=== PATIENT | female | born 1965 | race Caucasian/White ===

== ENCOUNTER 2017-06-26 07:40 | Observation (INO) | payer OTHER ==
[~2017-06-26] VITALS: Ht 160 cm; Wt 61.5 kg
[~2017-06-26 07:40] MED LIST: ACYC400T PO; SYNT75TA PO
[2017-06-26 07:43] VITALS: BP 109/56; PULSE 56; RESP 15; TEMP 98.2; O2SAT 100
[2017-06-26] MEDS ORDERED: LEVO.075 PO (08:01)
[2017-06-26] MEDS ORDERED: ACYC400T PO (08:01)
[2017-06-26 08:25] LABS: AUTOMATED NEUTROPHIL # 3.9 TH/MM3 (1.8-7.7); BASOPHIL # 0.1 TH/MM3 (0-0.2); BASOPHIL % 1.3 % (0.0-2.0); EOSINOPHIL # 0.2 TH/MM3 (0-0.4); EOSINOPHIL % 2.4 % (0.0-4.0); HEMATOCRIT 29.2 % (35.0-46.0); HEMO FLAGS DIFF FINAL; LYMPH % 34.5 % (9.0-44.0); LYMPHOCYTE # 2.6 TH/MM3 (1.0-4.8); MEAN CORPUSCULAR HEMOGLOBIN 21.9 PG (27.0-34.0); MEAN CORPUSCULAR HGB CONC 31.8 % (32.0-36.0); MONO % 9.5 % (0.0-8.0); NEUT % 52.3 % (16.0-70.0); PLATELET COUNT 353 TH/MM3 (150-450); RED BLOOD COUNT 4.23 MIL/MM3 (4.00-5.30); RED CELL DISTRIBUTION WIDTH 16.6 % (11.6-17.2); WHITE BLOOD COUNT 7.4 TH/MM3 (4.0-11.0)
[2017-06-26 08:42] LABS: ANION GAP 6 MEQ/L (5-15); AST (GOT) 16 U/L (15-37); BICARBONATE 27.6 MEQ/L (21.0-32.0); BLOOD UREA NITROGEN 22 MG/DL (7-18); CHLORIDE 105 MEQ/L (98-107); GLOMERULAR FILTRATION RATE 87 ML/MIN (>89); POTASSIUM 3.9 MEQ/L (3.5-5.1); SODIUM (NA) 139 MEQ/L (136-145)
[2017-06-26 08:44] LABS: ALT (GPT) 27 U/L (10-53)
[2017-06-26 08:46] LABS: ALKALINE PHOSPHATASE 70 U/L (45-117); TOTAL BILIRUBIN ADULT 0.2 MG/DL (0.2-1.0)
[2017-06-26] MEDS ORDERED: PANTOPRAZOLE INJ 80 MG in SODIUM CHLORIDE 0.9% INJ 35 ML IV ONE (09:15)
[2017-06-26] MEDS ORDERED: PANTOPRAZOLE INJ 80 MG in SODIUM CHLORIDE 0.9% INJ 100 ML IV SCH (09:15)
[2017-06-26 09:40] LABS: APTT (PATIENT) 26.1 SEC (24.3-30.1); INTERNATIONAL NORMALIZED RATIO 1.1 RATIO; PROTHROMBIN TIME - PATIENT 12.1 SEC (9.8-11.6)
[2017-06-26 10:16] LABS: TRANSFERRIN IRON PROFILE 387 MG/DL (200-360)
[2017-06-26 10:18] LABS: FERRITIN 7 NG/ML (8-252)
--- NOTE | 2017-06-26 10:23 | PD ---
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 Ham also with a history of heavy menstrual cycles who presents to the emergency department with fatigue. She says over the past week she's been increasingly tired, lightheaded and dizzy when she stands up with palpitations and exertional difficulty. She says she feels foggy all of the time and she is having difficulty working. She's had to take several days off of work and she feels unsafe. She has been diagnosed with anemia and she's been following with a technology officer who has been trying to schedule her for an endometrial ablation. She had an oophorectomy in the setting of a hemorrhagic cyst but when they went to her endometrial ablation they found that her IUD was embedded in her uterus and they were unable to perform it. She does have heavy menstrual cycles that last for 6-7 days and sometimes she has a hard time knowing when her menstrual cycle is occurring or she's having breakthrough bleeding. She hasn't noticed any dark stools or black stools. PFSH Past Medical History Anemia: Yes Diminished Hearing: No Thyroid Disease: Yes Tetanus Vaccination: Unknown Influenza Vaccination: Yes ?: Not LMP: NOW : 3 Para: 1 : 2 Past Surgical History Abdominal Surgery: Yes (GASTRIC BYPASS 06/2016) Gynecologic Surgery: Yes ( X 1 , OOPHORECTOMY ) Other Surgery: Yes Social History Alcohol Use: Yes ([facility]) Tobacco Use: No (QUIT 26 YEARS AGO ) Substance Use: No Allergies-Medications (Allergen,Severity, Reaction): Coded Allergies: Bees (Verified Allergy, Intermediate, Swelling, 06/26/17) Swelling all over Fire Ant (Verified Allergy, Intermediate, Swelling, 06/26/17) Swelling all over Reported Meds & Prescriptions Reported Meds & Active Scripts Active Reported Synthroid (Levothyroxine Sodium) 75 Mcg Tab 75 Mcg PO DAILY Acyclovir 400 Mg Tab 400 Mg PO DAILY Review of Systems Except as stated in HPI: all other systems reviewed are Neg Physical Exam Narrative GENERAL:Well appearing, no acute distress SKIN: Focused skin assessment warm and dry. HEAD: Atraumatic. Normocephalic. EYES: Pupils equal and round. No injection or drainage. ENT: Moist mucous membranes NECK: Trachea midline. CARDIOVASCULAR: Regular rate and rhythm. No murmur appreciated. RESPIRATORY: Clear to auscultation. Breath sounds equal bilaterally. GASTROINTESTINAL: Abdomen soft, firm heterogenous uterus, mildly tender to palpation in the left lower quadrant with no rebound or guarding. MUSCULOSKELETAL: No obvious deformities. NEUROLOGICAL: Awake and alert. No obvious cranial nerve deficits. Moving all extremities. PSYCHIATRIC: Appropriate mood and affect; insight and judgment normal. Data Data Last Documented VS Vital Signs Date Time Temp Pulse Resp B/P Pulse Ox O2 Delivery O2 Flow Rate FiO2 06/26/17 07:43 98.2 56 15 109/56 100 Orders Complete Blood Count With Diff (06/26/17 08:07) Comprehensive Metabolic Panel (06/26/17 08:07) Type And Screen (06/26/17 08:40) Prothrombin Time / Inr (Pt) (06/26/17 08:40) Act Partial Throm Time (Ptt) (06/26/17 08:40) Thyroid Stimulating Hormone (06/26/17 08:40) Pantoprazole Inj (Protonix Inj) (06/26/17 09:15) Pantoprazole Inj (Protonix Inj) (06/26/17 09:15) Ferritin (06/26/17 09:06) Iron/Tibc Profile (06/26/17 09:06) Admit Order (Ed Use Only) (06/26/17 09:25) Labs Laboratory Tests Test 06/26/17 06/26/17 08:10 08:16 White Blood Count 7.4 TH/MM3 Red Blood Count 4.23 MIL/MM3 Hemoglobin 9.3 GM/DL Hematocrit 29.2 % Mean Corpuscular Volume 69.0 FL Mean Corpuscular Hemoglobin 21.9 PG Mean Corpuscular Hemoglobin 31.8 % Concent Red Cell Distribution Width 16.6 % Platelet Count 353 TH/MM3 Mean Platelet Volume 7.7 FL Neutrophils (%) (Auto) 52.3 % Lymphocytes (%) (Auto) 34.5 % Monocytes (%) (Auto) 9.5 % Eosinophils (%) (Auto) 2.4 % Basophils (%) (Auto) 1.3 % Neutrophils # (Auto) 3.9 TH/MM3 Lymphocytes # (Auto) 2.6 TH/MM3 Monocytes # (Auto) 0.7 TH/MM3 Eosinophils # (Auto) 0.2 TH/MM3 Basophils # (Auto) 0.1 TH/MM3 CBC Comment DIFF FINAL Differential Comment Sodium Level 139 MEQ/L Potassium Level 3.9 MEQ/L Chloride Level 105 MEQ/L Carbon Dioxide Level 27.6 MEQ/L Anion Gap 6 MEQ/L Blood Urea Nitrogen 22 MG/DL Creatinine 0.71 MG/DL Estimat Glomerular Filtration 87 ML/MIN Rate Random Glucose 87 MG/DL Calcium Level 8.6 MG/DL Iron Level 18 MCG/DL Total Iron Binding Capacity 542 MCG/DL Percent Iron Saturation 3.3 % Ferritin 7 NG/ML Total Bilirubin 0.2 MG/DL Aspartate Amino Transf 16 U/L (AST/SGOT) Alanine Aminotransferase 27 U/L (ALT/SGPT) Alkaline Phosphatase 70 U/L Total Protein 7.2 GM/DL Albumin 3.9 GM/DL Thyroid Stimulating Hormone 2.170 uIU/ML 3rd Gen Prothrombin Time 12.1 SEC Prothromb Time International 1.1 RATIO Ratio Activated Partial 26.1 SEC Thromboplast Time Blood Type A POSITIVE Antibody Screen NEGATIVE MDM Medical Decision Making Medical Screen Exam Complete: Yes Emergency Medical Condition: Yes Interpretation(s) Afebrile, no tachycardia, normotensive Microcytic anemia Electrolytes are reassuring Differential Diagnosis GI bleed, menorrhagia, anemia, hypothyroidism Narrative Course This is a 51-year-old female who presents to the emergency department with increasing fatigue weakness palpitations and dizziness in the setting of known anemia. She was Hemoccult positive on my exam. She is placed on a monitor and an IV was established. Labs are obtained which demonstrated a hemoglobin of 9. I spoke to Dr. Mcintosh as the patient is a patient of Dr. Willett. He said he agrees she needs an endoscopy colonoscopy. I spoke to Dr. Allen and we agreed the patient can be placed in observation and seen by GI given her increasing and worsening symptoms. HemaPrompt Point of Care Internal Pos. & Neg. Controls: Passed Fecal Specimen Occult Blood: Positive Diagnosis Primary Impression: GI bleed Qualified Code: K92.2 - Gastrointestinal hemorrhage, unspecified gastrointestinal hemorrhage type Admitting Information Admitting Physician Requests: Observation Patient Instructions: General Instructions Departure Forms: Tests/Procedures Matilda Nation MD Jun 26, 2017 10:23
[2017-06-26] MEDS ORDERED: TEMAZEPAM 15 MG CAP PO PRN (11:30)
[2017-06-26] MEDS ORDERED: MAGNESIUM HYDROXIDE SUSP 30 ML CUP PO PRN (11:30)
[2017-06-26] MEDS ORDERED: ACETAMINOPHEN 325 MG TAB PO PRN (11:30)
[2017-06-26] MEDS ORDERED: ONDANSETRON HCL 4 MG/2 ML VIAL IVP PRN (11:30)
[2017-06-26] MEDS ORDERED: SODIUM CHLORIDE 0.9% FLUSH 10 ML FLUSH IV FLUSH PRN (11:30)
[2017-06-26] MEDS ORDERED: NALOXONE HCL 0.4 MG/ML AMP IV PRN (11:30)
--- NOTE | 2017-06-26 11:49 | RADRPT ---
EXAM DATE/TIME: 06/26/2017 11:42 [facility] COMPARISON: No previous studies available for comparison. INDICATIONS : Cough MEDICAL HISTORY : GI bleed SURGICAL HISTORY : None. ENCOUNTER: Initial ACUITY: 1 day PAIN SCORE: 0/10 LOCATION: chest FINDINGS: Portable AP view of the chest demonstrates a normal-sized cardiac silhouette. No effusion, consolidat ion, or pneumothorax is visualized. The bones and soft tissues demonstrate no acute abnormality. CONCLUSION: No acute cardiopulmonary abnormality is identified. Madhu Croft MD on June 26, 2017 at 11:47 Board Certified Radiologist. This report was verified electronically.
--- NOTE | 2017-06-26 13:20 | PD.CONS ---
HPI History of Present Illness This is a 51 year old female who presented to the ED with c/o fatigue. Patient reports ongoing fatigue over past 4 months, worsening over the past year. Reports that over the past week she has become increasingly tired, lightheaded, and dizzy when she stands up. Patient states she was first noted to be anemic 4 months ago and was started on iron supplements. PMH significant for Cole en y gastric bypass (by Dr. Martin) in Jul 2016 and heavy menstrual cycles. Gynecology has been following patient and had scheduled her for an endometrial ablation, which could not be completed because her IUD was found to be embedded in her uterus. Patient is s/p oophorectomy for hemorrhagic cyst about 3 months ago. Patient is currently on her menstrual cycle, which she states is currently not heavy. Reports intermittent upper abdominal pain. No nausea or vomiting. Has not noted any dark stool or blood in stool. Reports family history of colon cancer in father. Her last colonoscopy was done by Dr. Woodward 3 years ago at [place], which showed polyps, benign, per patient. (Adriana Alcala) PFSH Past Medical History Anemia Thyroid disease Menorrhagia Past Surgical History Gastric bypass, Jul 2016 C section, x 1 Oophorectomy (Adriana Alcala) Coded Allergies: Bees (Verified Allergy, Intermediate, Swelling, 06/26/17) Swelling all over Fire Ant (Verified Allergy, Intermediate, Swelling, 06/26/17) Swelling all over Medications Current Medications Medications (Trade) Dose Ordered Sig/Alfonso Route PRN Reason Start Time Stop Time Status Last Admin Dose Admin Pantoprazole Sodium/Sodium Chloride (Protonix Inj/NS Inj) 100 ml @ 10 mls/hr Q10H IV 06/26/17 09:15 06/26/17 09:49 Sodium Chloride (NS Flush) 2 ml UNSCH PRN IV FLUSH FLUSH AFTER USING IV ACCESS 06/26/17 11:30 Sodium Chloride (NS Flush) 2 ml BID IV FLUSH 06/26/17 21:00 Acetaminophen (Tylenol) 650 mg Q4H PRN PO TEMP > 100.4 06/26/17 11:30 Ondansetron HCl (Zofran Inj) 4 mg Q6H PRN IVP NAUSEA OR VOMITING 06/26/17 11:30 Temazepam (Restoril) 15 mg HS PRN PO INSOMNIA 06/26/17 11:30 Naloxone HCl (Narcan Inj) 0.4 mg UNSCH PRN IV SEE LABEL COMMENTS 06/26/17 11:30 Magnesium Hydroxide (Milk Of Uma Lazcano) 30 ml Q12H PRN PO MILD - MODERATE CONSTIPATION 06/26/17 11:30 Acyclovir (Zovirax) 400 mg DAILY PO 06/27/17 09:00 Levothyroxine Sodium (Synthroid) 75 mcg DAILY@06 PO 06/27/17 06:00 Family History Father-Colon Cancer Social History ETOH, occasional Tobacco, none currently, quit 26 years ago Illicit Drugs, denies (Adriana Alcala) Review of Systems Constitutional: COMPLAINS OF: Dizziness, DENIES: Diaphoretic episodes, Fatigue , Fever, Weight gain, Weight loss, Chills, Change in appetite, Night Sweats Endocrine: DENIES: Polydipsia, Polyuria Eyes: DENIES: Blurred vision, Photosensitivity, Double Vision Ears, nose, mouth, throat: DENIES: Hearing loss, Vertigo, Oral lesions, Throat pain, Hoarseness Respiratory: DENIES: Cough, Wheezing, Hemoptysis, Sputum production, Shortness of breath Cardiovascular: COMPLAINS OF: Palpitations, DENIES: Chest pain, Syncope, Lower Extremity Edema, Orthopnea, Claudication Gastrointestinal: COMPLAINS OF: Abdominal pain, DENIES: Black stools, Bloody stools, Constipation, Diarrhea, Nausea, Vomiting, Difficulty Swallowing, Anorexia, Odynophagia, Swelling of Abdomen, Heartburn, Hematemesis Genitourinary: DENIES: Urinary frequency, Urinary incontinence, Urgency, Hematuria, Dysuria, Nocturia Musculoskeletal: DENIES: Joint pain, Muscle aches, Stiffness, Joint Swelling, Back pain, Neck pain Integumentary: DENIES: Abnormal pigmentation, Nail changes, Pruritus, Rash, Jaundice Hematologic/lymphatic: DENIES: Bruising, Lymphadenopathy Immunologic/allergic: DENIES: Eczema, Urticaria Neurologic: DENIES: Abnormal gait, Headache, Localized weakness, Paresthesias Psychiatric: DENIES: Anxiety, Confusion, Mood changes, Depression, Agitation, Suicidal Ideation (Adriana Alcala) GI Exam Vitals I&O Vital Signs Date Time Temp Pulse Resp B/P Pulse Ox O2 Delivery O2 Flow Rate FiO2 06/26/17 07:43 98.2 56 15 109/56 100 Imaging Last Impressions Chest X-Ray 06/26/17 1129 Signed Impressions: Service Date/Time: Monday, June 26, 2017 11:42 - CONCLUSION: No acute cardiopulmonary abnormality is identified. Madhu Croft MD Laboratory Test 06/26/17 06/26/17 08:10 08:16 White Blood Count 7.4 TH/MM3 Red Blood Count 4.23 MIL/MM3 Hemoglobin 9.3 GM/DL Hematocrit 29.2 % Mean Corpuscular Volume 69.0 FL Mean Corpuscular Hemoglobin 21.9 PG Mean Corpuscular Hemoglobin 31.8 % Concent Red Cell Distribution Width 16.6 % Platelet Count 353 TH/MM3 Mean Platelet Volume 7.7 FL Neutrophils (%) (Auto) 52.3 % Lymphocytes (%) (Auto) 34.5 % Monocytes (%) (Auto) 9.5 % Eosinophils (%) (Auto) 2.4 % Basophils (%) (Auto) 1.3 % Neutrophils # (Auto) 3.9 TH/MM3 Lymphocytes # (Auto) 2.6 TH/MM3 Monocytes # (Auto) 0.7 TH/MM3 Eosinophils # (Auto) 0.2 TH/MM3 Basophils # (Auto) 0.1 TH/MM3 CBC Comment DIFF FINAL Differential Comment Sodium Level 139 MEQ/L Potassium Level 3.9 MEQ/L Chloride Level 105 MEQ/L Carbon Dioxide Level 27.6 MEQ/L Anion Gap 6 MEQ/L Blood Urea Nitrogen 22 MG/DL Creatinine 0.71 MG/DL Estimat Glomerular Filtration 87 ML/MIN Rate Random Glucose 87 MG/DL Calcium Level 8.6 MG/DL Iron Level 18 MCG/DL Total Iron Binding Capacity 542 MCG/DL Percent Iron Saturation 3.3 % Ferritin 7 NG/ML Total Bilirubin 0.2 MG/DL Aspartate Amino Transf 16 U/L (AST/SGOT) Alanine Aminotransferase 27 U/L (ALT/SGPT) Alkaline Phosphatase 70 U/L Total Protein 7.2 GM/DL Albumin 3.9 GM/DL Thyroid Stimulating Hormone 2.170 uIU/ML 3rd Gen Prothrombin Time 12.1 SEC Prothromb Time International 1.1 RATIO Ratio Activated Partial 26.1 SEC Thromboplast Time Blood Type A POSITIVE Antibody Screen NEGATIVE Physical Examination HEENT: PERRLA; normocephalic; atraumatic; no jaundice. NECK: Neck is supple, no JVD, no lymphadenopathy. CHEST: CTA CARDIAC: RRR with no murmur gallop or rubs. ABDOMEN: Soft, nondistended, mild TTP at LLQ; no hepatosplenomegaly; bowel sounds x 4. EXTREMITIES: No clubbing, cyanosis, or edema. SKIN: Normal; no rash; no jaundice. 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 Hemoccult positive stool. HH 9.3/29.2. Patient with anemia noted 4 months ago. Patient has been on iron supplements. Increased dizziness and fatigue over past month and worsening over past week. History of Cole en y gastric bypass Jul 2016. Last colonoscopy [address] Woodward with benign polyps. Father had colon cancer. Has not noted dark stools or blood in stool. Has menorrhagia, currently on menstrual cycle, which patient states is not heavy currently. PLAN - Colonoscopy Tuesday - Obtain consents - Clear liquid diet today - NPO after MN tonight - Bowel prep today - Monitor HH, transfuse as necessary - Supportive care - Further recommendations to follow based on results of above. Patient seen and examined by Dr. Villafana and myself and this note is written on her behalf. (Adriana Alcala) Physician Comments seen, examined agree with above we will add egd with small bowel biopsy to r/o celiac disease celiac panel (Melia Villafana MD) Adriana Alcala Jun 26, 2017 13:20 Melia Villafana MD Jun 26, 2017 14:28
[2017-06-26 15:34] VITALS: BP 100/60
[2017-06-26] MEDS ORDERED: PEG (High)/E-LYTE SOLN 4000 ML BTL PO ONE (16:00)
[2017-06-26 16:25] VITALS: BP 88/53; PULSE 60; RESP 16; TEMP 98.5; O2SAT 97
--- NOTE | 2017-06-26 16:46 | HHI.HP ---
HPI Service [facility] Hospitalists Primary Care Physician Argelia Vergara Admission Diagnosis symptomatic anemia Chief Complaint: worsening fatigue dizziness Travel History International Travel<30 Days: No Contact w/Intl Traveler <30 Da: No Traveled to Known Affected Are: No History of Present Illness This is a 51 year old female who presented to the ED with c/o fatigue. Patient reports ongoing fatigue over past 4 months, worsening over the past year. Reports that over the past week she has become increasingly tired, lightheaded, and dizzy when she stands up. Patient states she was first noted to be anemic 4 months ago and was started on iron supplements. PMH significant for Cole en y gastric bypass (by Dr. Martin) in Jul 2016 and heavy menstrual cycles. Gynecology has been following patient and had scheduled her for an endometrial ablation, which could not be completed because her IUD was found to be embedded in her uterus. Patient is s/p oophorectomy for hemorrhagic cyst about 3 months ago. Patient is currently on her menstrual cycle, which she states is currently not heavy. Reports intermittent upper abdominal pain. No nausea or vomiting. Has not noted any dark stool or blood in stool. Reports family history of colon cancer in father. Her last colonoscopy was done by Dr. Woodward 3 years ago at [place], which showed polyps, benign, per patient Review of Systems Constitutional: DENIES: Diaphoretic episodes, Fatigue, Fever, Weight gain, Weight loss, Chills, Dizziness, Change in appetite, Night Sweats Endocrine: COMPLAINS OF: Abnorml menstrual pattern, DENIES: Heat/cold intolerance, Polydipsia, Polyuria, Polyphagia Eyes: DENIES: Blurred vision, Diplopia, Eye inflammation, Eye pain, Vision loss , Photosensitivity, Double Vision Ears, nose, mouth, throat: DENIES: Tinnitus, Hearing loss, Vertigo, Nasal discharge, Oral lesions, Throat pain, Hoarseness, Ear Pain, Running Nose, Epistaxis, Sinus Pain, Toothache, Odynophagia Respiratory: DENIES: Apneas, Cough, Snoring, Wheezing, Hemoptysis, Sputum production, Shortness of breath Cardiovascular: DENIES: Chest pain, Palpitations, Syncope, Dyspnea on Exertion , PND, Lower Extremity Edema, Orthopnea, Claudication Gastrointestinal: COMPLAINS OF: Abdominal pain, See HPI, DENIES: Black stools , Bloody stools, BRB per rectum, Constipation, Diarrhea, GERD, Nausea, Reflux, Vomiting, Difficulty Swallowing, Anorexia Genitourinary: COMPLAINS OF: Abnormal vaginal bleeding, DENIES: Urinary frequency, Urinary incontinence, Urgency, Hematuria, Dysuria, Nocturia Musculoskeletal: DENIES: Joint pain, Muscle aches, Stiffness, Joint Swelling, Back pain, Neck pain Integumentary: DENIES: Abnormal pigmentation, Pruritus, Rash, Nail changes, Breast masses, Breast skin changes, Nipple discharge Hematologic/lymphatic: DENIES: Bruising, Lymphadenopathy Immunologic/allergic: DENIES: Eczema, Urticaria Neurologic: DENIES: Abnormal gait, Headache, Localized weakness, Paresthesias, Seizures, Speech Problems, Tremor, Poor Balance Psychiatric: DENIES: Anxiety, Confusion, Mood changes, Depression, Hallucinations, Agitation, Suicidal Ideation, Homicidal Ideation, Delusions, History of Bipolar, History of Schizophrenia Past Family Social History Past Medical History Anemia Thyroid disease Menorrhagia Past Surgical History Gastric bypass, Jul 2016 C section, x 1 Oophorectomy Reported Medications Reported Meds & Active Scripts Active Reported Synthroid (Levothyroxine Sodium) 75 Mcg Tab 75 Mcg PO DAILY Acyclovir 400 Mg Tab 400 Mg PO DAILY Allergies: Coded Allergies: Bees (Verified Allergy, Intermediate, Swelling, 06/26/17) Swelling all over Fire Ant (Verified Allergy, Intermediate, Swelling, 06/26/17) Swelling all over Family History Noncontributory Social History - Works as a [employer] nurse - Tobacco: Quit 26 years ago - Occasional alcoholic beverage - No illicit street drugs Physical Exam Vital Signs Vital Signs Date Time Temp Pulse Resp B/P Pulse Ox O2 Delivery O2 Flow Rate FiO2 06/26/17 15:34 68 18 100/60 99 06/26/17 07:43 98.2 56 15 109/56 100 Physical Exam GENERAL: This is a well-nourished, well-developed patient, in no apparent distress. SKIN: No rashes, ecchymoses or lesions. Cool and dry. HEAD: Atraumatic. Normocephalic. No temporal or scalp tenderness. EYES: Pupils equal round and reactive. Extraocular motions intact. No scleral icterus. No injection or drainage. ENT: Nose without bleeding, purulent drainage or septal hematoma. Throat without erythema, tonsillar hypertrophy or exudate. Uvula midline. Airway patent. NECK: Trachea midline. No JVD or lymphadenopathy. Supple, nontender, no meningeal signs. CARDIOVASCULAR: Regular rate and rhythm without murmurs, gallops, or rubs. RESPIRATORY: Clear to auscultation. Breath sounds equal bilaterally. No wheezes , rales, or rhonchi. GASTROINTESTINAL: Abdomen soft, non-tender, nondistended. No hepato-splenomegaly , or palpable masses. No guarding. MUSCULOSKELETAL: Extremities without clubbing, cyanosis, or edema. No joint tenderness, effusion, or edema noted. No calf tenderness. Negative Homans sign bilaterally. NEUROLOGICAL: Awake and alert. Cranial nerves II through XII intact. Motor and sensory grossly within normal limits. Five out of 5 muscle strength in all muscle groups. Normal speech. Laboratory Laboratory Tests Test 06/26/17 06/26/17 08:10 08:16 White Blood Count 7.4 Red Blood Count 4.23 Hemoglobin 9.3 Hematocrit 29.2 Mean Corpuscular Volume 69.0 Mean Corpuscular Hemoglobin 21.9 Mean Corpuscular Hemoglobin 31.8 Concent Red Cell Distribution Width 16.6 Platelet Count 353 Mean Platelet Volume 7.7 Neutrophils (%) (Auto) 52.3 Lymphocytes (%) (Auto) 34.5 Monocytes (%) (Auto) 9.5 Eosinophils (%) (Auto) 2.4 Basophils (%) (Auto) 1.3 Neutrophils # (Auto) 3.9 Lymphocytes # (Auto) 2.6 Monocytes # (Auto) 0.7 Eosinophils # (Auto) 0.2 Basophils # (Auto) 0.1 CBC Comment DIFF FINAL Differential Comment Sodium Level 139 Potassium Level 3.9 Chloride Level 105 Carbon Dioxide Level 27.6 Anion Gap 6 Blood Urea Nitrogen 22 Creatinine 0.71 Estimat Glomerular Filtration 87 Rate Random Glucose 87 Calcium Level 8.6 Iron Level 18 Total Iron Binding Capacity 542 Percent Iron Saturation 3.3 Ferritin 7 Total Bilirubin 0.2 Aspartate Amino Transf 16 (AST/SGOT) Alanine Aminotransferase 27 (ALT/SGPT) Alkaline Phosphatase 70 Total Protein 7.2 Albumin 3.9 Thyroid Stimulating Hormone 2.170 3rd Gen Prothrombin Time 12.1 Prothromb Time International 1.1 Ratio Activated Partial 26.1 Thromboplast Time Blood Type A POSITIVE Antibody Screen NEGATIVE Result Diagram: 06/26/17 0810 06/26/17 0810 Imaging Last Impressions Chest X-Ray 06/26/17 1129 Signed Impressions: Service Date/Time: Monday, June 26, 2017 11:42 - CONCLUSION: No acute cardiopulmonary abnormality is identified. Madhu Croft MD Septic Shock Reassessment Heart: Regular rate and rhythm Lungs: Clear Skin: Warm Peripheral Pulses: Bounding Right Radial Bounding Left Radial Bounding Right Popliteal Bounding Left Popliteal Bounding Right Dorsalis Pedis Bounding Left Dorsalis Pedis Bounding Right Posterior Tibial Bounding Left Posterior Tibial Capillary Refill: Brisk Assessment and Plan Problem List: (1) Symptomatic anemia Status: Acute Plan: - Hemoglobin 9.3/hematocrit 29.2 - Patient receiving iron supplements - patient undergoing workup with gynecology for menorrhagia - Status post nephrectomy for hemorrhagic cyst approximately 3 months ago - Patient had been scheduled for endometrial ablation. However this could not be performed due to retained IUD embedded in her uterus - Patient admitted with complaint of worsening fatigue and abdominal pain - Obtain iron indices - Appreciate gastroenterology consult - Will obtain EGD and colonoscopy tomorrow - Obtain CT of the abdomen and pelvis - DVT prophylaxis - Supportive care (2) Hypothyroid Status: Chronic Plan: -Continue levothyroxine Physician Certification 2 Midnight Certification Type: Admission for Inpatient Services Order for Inpatient Services The services are ordered in accordance with Medicare regulations or non- Medicare payer requirements, as applicable. In the case of services not specified as inpatient-only, they are appropriately provided as inpatient services in accordance with the 2-midnight benchmark. Estimated LOS (days): 3 3 days is the estimated time the patient will need to remain in the hospital, assuming treatment plan goals are met and no additional complications. Post-Hospital Plan: Home Problem Qualifiers (1) Hypothyroid: Qualified Code: E03.9 - Hypothyroidism, unspecified type Basil Allen DO Jun 26, 2017 16:46
[2017-06-26 20:00] VITALS: BP 86/51; PULSE 58; RESP 15; TEMP 97; O2SAT 100
[2017-06-26 20:09] VITALS: PULSE 60
[2017-06-26] MEDS: SODIUM CHLORIDE 0.9% FLUSH 10 ML FLUSH IV FLUSH SCH (21:34)
[2017-06-26 21:36] LABS: RETIC % 1.1 % (0.4-3.0); REVIEW FLAG FINAL
[2017-06-26] MEDS: PANTOPRAZOLE INJ 80 MG in SODIUM CHLORIDE 0.9% INJ 100 ML IV SCH (22:36)
[2017-06-27] VITALS: BP 88/48; PULSE 64; RESP 18; TEMP 97.3; O2SAT 99
[2017-06-27 00:10] VITALS: PULSE 63
[2017-06-27 04:00] VITALS: BP 95/64; PULSE 59; RESP 18; TEMP 97.3; O2SAT 98
[2017-06-27] MEDS: PANTOPRAZOLE INJ 80 MG in SODIUM CHLORIDE 0.9% INJ 100 ML IV SCH (05:36)
[2017-06-27] MEDS ORDERED: LEVOTHYROXINE SODIUM 75 MCG TAB PO SCH (06:00)
[2017-06-27 06:52] LABS: AUTOMATED NEUTROPHIL # 2.8 TH/MM3 (1.8-7.7); BASOPHIL # 0.1 TH/MM3 (0-0.2); EOSINOPHIL # 0.2 TH/MM3 (0-0.4); EOSINOPHIL % 3.3 % (0.0-4.0); HEMATOCRIT 25.8 % (35.0-46.0); HEMO FLAGS DIFF FINAL; LYMPH % 37.9 % (9.0-44.0); LYMPHOCYTE # 2.1 TH/MM3 (1.0-4.8); MEAN CELL VOLUME 67.9 FL (80.0-100.0); MEAN CORPUSCULAR HEMOGLOBIN 22.2 PG (27.0-34.0); MEAN CORPUSCULAR HGB CONC 32.6 % (32.0-36.0); MONO % 8.6 % (0.0-8.0); NEUT % 49.2 % (16.0-70.0); PLATELET COUNT 289 TH/MM3 (150-450); RED CELL DISTRIBUTION WIDTH 17.2 % (11.6-17.2); WHITE BLOOD COUNT 5.6 TH/MM3 (4.0-11.0)
[2017-06-27 07:26] LABS: BICARBONATE 26.9 MEQ/L (21.0-32.0); POTASSIUM 3.3 MEQ/L (3.5-5.1)
[2017-06-27 08:00] VITALS: BP_SYST 92; BP_SYST 95; BP_DIAS 63; BP_DIAS 64; PULSE 66; RESP 18; TEMP 98.2; O2SAT 97
[2017-06-27] MEDS ORDERED: POTASSIUM CHLORIDE 20 MEQ CONTROLLED RELEASE TAB PO ONE (08:00)
[2017-06-27] MEDS ORDERED: IRON SUCROSE INJ 200 MG in SODIUM CHLORIDE 0.9% INJ 100 ML IV ONE (09:00)
[2017-06-27] MEDS ORDERED: ACYCLOVIR 200 MG CAP PO SCH (09:00)
--- NOTE | 2017-06-27 09:01 | HHI.PR ---
Subjective Remarks felt weak and fatigued easily before admission has alot of menorrhagia problems and follows with packing machine tender. Objective Vitals nad oriented no labored breathing. Vital Signs Date Time Temp Pulse Resp B/P Pulse Ox O2 Delivery O2 Flow Rate FiO2 06/27/17 04:00 97.3 59 18 95/64 98 06/27/17 00:10 63 06/27/17 00:00 97.3 64 18 88/48 99 06/26/17 20:09 60 06/26/17 20:00 97.0 58 15 86/51 100 06/26/17 16:25 98.5 60 16 88/53 97 06/26/17 15:34 68 18 100/60 99 06/26/17 06/26/17 06/27/17 14:59 22:59 06:59 Intake Total 720 ml 480 ml Balance 720 ml 480 ml Intake Oral 720 ml 480 ml # Voids 2 2 # Bowel Movements 4 5 # Sanitary Pads 3 Pads Result Diagram: 06/27/17 0626 06/27/17 0626 Imaging Last Impressions Chest X-Ray 06/26/17 1129 Signed Impressions: Service Date/Time: Monday, June 26, 2017 11:42 - CONCLUSION: No acute cardiopulmonary abnormality is identified. Madhu Croft MD A/P Problem List: (1) Symptomatic anemia Status: Acute Plan: - Hemoglobin 9.3/hematocrit 29.2 - Patient receiving iron supplements po - patient undergoing workup with gynecology for menorrhagia - Status post oophorectomy for hemorrhagic cyst approximately 3 months ago - Patient had been scheduled for endometrial ablation. However this could not be performed due to retained IUD embedded in her uterus - Patient admitted with complaint of worsening fatigue and abdominal pain - iron studies showed iron def anemia. heme pos stool but could be related to po iron. -going for egd/colon today -pt says her gen surg had scheduled outpt blood transfusion for her in about a week...we discussed trying to get her set up for iron transfusions until her gynecological issues are resolved. venofer iron today and try to coordinate a d/c plan after endoscopy. egd/colon....hemorrhoids. I spoke to Dr Surekha velázquez/onc. He will see her on 07/06 in clinic and arrange for more iron infusions. she will get iv venofer prior to d/c today. (2) Hypothyroid Status: Chronic Plan: -Continue levothyroxine Problem Qualifiers (1) Hypothyroid: Qualified Code: E03.9 - Hypothyroidism, unspecified type Saúl Cai MD Jun 27, 2017 09:01
[2017-06-27] MEDS ORDERED: ePHEDrine/NS 25 MG/5 ML SYR IV ONE (12:00)
[2017-06-27] MEDS ORDERED: PROPOFOL 200 MG/20 ML AMP IV ONE (12:25)
[2017-06-27] MEDS ORDERED: DO NOT ADM ANY ANTICOAGULANT DRUGS PRN (13:00)
--- NOTE | 2017-06-27 13:06 | HHI.GIFU ---
Subjective Remarks EGD showed a few clips in gastric bypass anatomy. No ulcers. No bleeding sites. Colonoscopy was normal. No polyps seen. Moderate internal hemorrhoids. Objective Vitals I&O Vital Signs Date Time Temp Pulse Resp B/P Pulse Ox O2 Delivery O2 Flow Rate FiO2 06/27/17 08:00 98.2 66 18 95/63 97 92/64 06/27/17 04:00 97.3 59 18 95/64 98 06/27/17 00:10 63 06/27/17 00:00 97.3 64 18 88/48 99 06/26/17 20:09 60 06/26/17 20:00 97.0 58 15 86/51 100 06/26/17 16:25 98.5 60 16 88/53 97 06/26/17 15:34 68 18 100/60 99 I/O 06/26/17 06/26/17 06/26/17 06/27/17 06/27/17 06/27/17 06:59 14:59 22:59 06:59 14:59 22:59 Intake Total 720 ml 480 ml Balance 720 ml 480 ml Intake Oral 720 ml 480 ml # Voids 2 2 # Bowel Movements 4 5 # Sanitary Pads 3 Pads Laboratory Laboratory Tests Test 06/27/17 06:26 White Blood Count 5.6 Red Blood Count 3.80 Hemoglobin 8.4 Hematocrit 25.8 Mean Corpuscular Volume 67.9 Mean Corpuscular Hemoglobin 22.2 Mean Corpuscular Hemoglobin 32.6 Concent Red Cell Distribution Width 17.2 Platelet Count 289 Mean Platelet Volume 7.4 Neutrophils (%) (Auto) 49.2 Lymphocytes (%) (Auto) 37.9 Monocytes (%) (Auto) 8.6 Eosinophils (%) (Auto) 3.3 Basophils (%) (Auto) 1.0 Neutrophils # (Auto) 2.8 Lymphocytes # (Auto) 2.1 Monocytes # (Auto) 0.5 Eosinophils # (Auto) 0.2 Basophils # (Auto) 0.1 CBC Comment DIFF FINAL Differential Comment Sodium Level 144 Potassium Level 3.3 Chloride Level 108 Carbon Dioxide Level 26.9 Anion Gap 9 Blood Urea Nitrogen 10 Creatinine 0.58 Estimat Glomerular Filtration 110 Rate Random Glucose 81 Calcium Level 8.3 Physical Exam HEENT: Pupils round and reactive to light; normocephalic; atraumatic; no jaundice. Throat is clear. NECK: Neck is supple, no JVD, no lymphadenopathy. CHEST: Chest is clear to auscultation and percussion. CARDIAC: Regular rate and rhythm with no murmur gallop or rubs. ABDOMEN: Soft, nondistended, nontender; no hepatosplenomegaly; bowel sounds are present in all four quadrants. EXTREMITIES: No clubbing, cyanosis, or edema. SKIN: Normal; no rash; no jaundice. HAIRSPRING SETTER: No focal deficits; alert and oriented times three. Assessment and Plan Plan ASSESSMENT Anemia, symptomatic. Hemoccult positive stool. HH 9.3/29.2. Patient with anemia noted 4 months ago. Patient has been on iron supplements. Increased dizziness and fatigue over past month and worsening over past week. History of Cole en y gastric bypass Jul 2016. Last colonoscopy [address] Woodward with benign polyps. Father had colon cancer. Has not noted dark stools or blood in stool. Has menorrhagia, currently on menstrual cycle, which patient states is not heavy currently. EGD and colonoscopy today showed no ulcers, no polyps. PLAN - Regular diet. - Ok for discharge if otherwise stable. Nitin Anderson MD Jun 27, 2017 13:06
--- NOTE | 2017-06-27 13:36 | HHI.DCPOC ---
Discharge Care Plan Diagnosis: (1) Symptomatic anemia (2) Hypothyroid Goals to Promote Your Health - Spoke with Dr. Irby today and we have man an appt for the patient to be seen by Dr. Irby for IV iron infusion is on 07/06/17 @ 8:00AM - Followup with Gynecology in 1-2 weeks, call for an appt. - Followup with your PCP< Dr. Salmeron, in 1 week, call for an appt.; Directions to Meet Your Goals Take your medications as prescribed Follow your dietary instruction Follow activity as directed Keep your appointments as scheduled Take your immunizations and boosters as scheduled If your symptoms worsen call your PCP, if no PCP go to Urgent Care Center or Emergency Room Smoking is Dangerous to Your Health. Avoid second hand smoke Call the 24-hour hour crisis hotline for domestic abuse at Samantha Beltran Jun 27, 2017 13:36
[2017-06-27] MEDS ORDERED: FERR325T8 PO (13:39)
[2017-06-27] MEDS: SODIUM CHLORIDE 0.9% FLUSH 10 ML FLUSH IV FLUSH SCH (15:40)
[2017-06-27 16:00] VITALS: BP 101/59; PULSE 64; RESP 18; TEMP 97.1; O2SAT 99
[2017-06-27 20:00] VITALS: BP 92/48; PULSE 74; RESP 18; TEMP 97.3; O2SAT 99
[2017-06-29 13:52] LABS: IGA SERUM 147 mg/dL (81-463); TISSUE TRANSGLUTAMINASE AB IGG ND U/mL (())
[2017-07-02 03:53] LABS: ENDOMYSIAL AB TITER ND (<1:5); TISSUE TRANSGLUTAMINASE AB LESS THAN 1 U/mL (())
== END 2017-06-27 20:54 | disposition home or self-care (01) ==
LOC: NEPE 07:40 → NEDA 09:26 → INTOOBSV 11:31 → OBSVTOIN 11:31 → HOCA 15:40
PROVIDERS: ADMIT Hospitalist; ATTEND Hospitalist
DX: D50.9 Iron deficiency anemia, unspecified (principal); K92.2 Gastrointestinal hemorrhage, unspecified; R10.10 Upper abdominal pain, unspecified; R05 Cough; R00.2 Palpitations; E03.9 Hypothyroidism, unspecified; N92.0 Excessive and frequent menstruation with regular cycle; K64.8 Other hemorrhoids; Z79.899 Other long term (current) drug therapy; Z87.891 Personal history of nicotine dependence; Z97.5 Presence of (intrauterine) contraceptive device; Z90.5 Acquired absence of kidney; Z80.0 Family history of malignant neoplasm of digestive organs; Z98.84 Bariatric surgery status
CPT/HCPCS: 71010; 80048; 80053; 82728; 82784; 83516; 83540; 83550; 83615; 84443; 85025; 85044; 85610; 85730; 86850; 86900; 86901; 96365; 96376; 99285; C9113; G0378; J1756

== ENCOUNTER 2017-07-16 06:52 | Emergency (ER) | payer OTHER ==
[~2017-07-16] VITALS: Ht 160 cm; Wt 59.0 kg
[~2017-07-16 06:52] MED LIST changes: +FERR325T8 PO; +LEVO.075 PO; -SYNT75TA PO
[2017-07-16 06:55] VITALS: BP 113/54; PULSE 75; RESP 15; TEMP 97.7; O2SAT 98
[2017-07-16] MEDS ORDERED: HEMOCAP PO (08:43)
[2017-07-16] MEDS ORDERED: CALC1TAB12 PO (08:44)
[2017-07-16 08:47] VITALS: BP 97/56; PULSE 51; RESP 12; O2SAT 100
--- NOTE | 2017-07-16 08:49 | PD ---
HPI Chief Complaint: Syncope/Near-Syncope Time Seen by Provider: 07:53 Travel History International Travel<30 days: No Contact w/Intl Traveler<30days: No Traveled to known affect area: No History of Present Illness HPI 51 year-old woman who presents emergency Department with a syncopal episode. She is a history of iron deficiency anemia following gastric bypass and July 2016, and menorrhagia. She's been treated with IV iron infusions. She is scheduled for another infusion on Tuesday, in 2 days. She states she has been feeling with decreased energy and some headache. She should be set anemia. States today while standing she got lightheaded and collapsed to the ground. She did not lose consciousness. She having minimal vaginal bleeding today but has some vaginal bleeding most days. She is following up with a frame pulley mortising machine operator, Dr. Spears, and they're planning on D&C and removal of an IUD which is apparently migrated into the myometrium. History Past Medical History Narrative Medical Iron deficiency anemia Menorrhagia Depression Thyroid problems Gastric bypass 07/2016 LMP: IUD-IMBEDDED : 4 Para: 1 Social History Alcohol Use: Yes (MINIMAL) Tobacco Use: No (QUIT 26 YEARS AGO ) Allergies-Medications (Allergen,Severity, Reaction): Coded Allergies: bee venom protein (honey bee) (Unverified Allergy, Intermediate, Swelling , 07/16/17) Swelling all over fire ant (Unverified Allergy, Intermediate, Swelling, 07/16/17) Swelling all over Reported Meds & Prescriptions Reported Meds & Active Scripts Active Reported Calcium 500 +D (Calcium Carbonate-Cholecalciferol) 500-400 Mg-Unit Tab 1 Tab PO TID Hemocyte Plus (Multi-Vit w/GC-Sanh-Fpojmwwu) 1 Cap Cap 1 Cap PO DAILY Synthroid (Levothyroxine Sodium) 75 Mcg Tab 75 Mcg PO DAILY Acyclovir 400 Mg Tab 400 Mg PO DAILY Review of Systems Except as stated in HPI: all other systems reviewed are Neg Physical Exam Narrative GENERAL: Well-appearing 51 year-old woman, no acute distress. SKIN: Focused skin assessment warm/dry. HEAD: Atraumatic. Normocephalic. EYES: Pupils equal and round. No scleral icterus. No injection or drainage. ENT: No nasal bleeding or discharge. Mucous membranes pink and moist. NECK: Trachea midline. No JVD. CARDIOVASCULAR: Regular rate and rhythm. No murmur appreciated. RESPIRATORY: No accessory muscle use. Clear to auscultation. Breath sounds equal bilaterally. GASTROINTESTINAL: Abdomen soft, non-tender, nondistended. Hepatic and splenic margins not palpable. MUSCULOSKELETAL: No obvious deformities. No clubbing. No cyanosis. No edema. NEUROLOGICAL: Awake and alert. No obvious cranial nerve deficits. Motor grossly within normal limits. Normal speech. PSYCHIATRIC: Appropriate mood and affect; insight and judgment normal. Data Data Last Documented VS Vital Signs Date Time Temp Pulse Resp B/P (MAP) Pulse Ox O2 Delivery O2 Flow Rate FiO2 07/16/17 11:00 60 20 98/55 (69) 100 Room Air 07/16/17 06:55 97.7 Orders Orders Complete Blood Count With Diff (07/16/17 08:09) Basic Metabolic Panel (Bmp) (07/16/17 08:09) Iv Access Insert/Monitor (07/16/17 08:09) Electrocardiogram (07/16/17 ) Insulin, Blood (07/16/17 10:55) C Peptide (07/16/17 10:55) Beta Hydroxybutyrate (Acetone) (07/16/17 10:55) Labs Laboratory Tests Test 07/16/17 08:30 07/16/17 11:09 White Blood Count 6.9 TH/MM3 Red Blood Count 4.48 MIL/MM3 Hemoglobin 9.9 GM/DL Hematocrit 32.1 % Mean Corpuscular Volume 71.7 FL Mean Corpuscular Hemoglobin 22.1 PG Mean Corpuscular Hemoglobin Concent 30.8 % Red Cell Distribution Width 20.3 % Platelet Count 383 TH/MM3 Mean Platelet Volume 7.6 FL Neutrophils (%) (Auto) 46.3 % Lymphocytes (%) (Auto) 38.1 % Monocytes (%) (Auto) 12.0 % Eosinophils (%) (Auto) 2.2 % Basophils (%) (Auto) 1.4 % Neutrophils # (Auto) 3.2 TH/MM3 Lymphocytes # (Auto) 2.6 TH/MM3 Monocytes # (Auto) 0.8 TH/MM3 Eosinophils # (Auto) 0.1 TH/MM3 Basophils # (Auto) 0.1 TH/MM3 CBC Comment DIFF FINAL Differential Comment Blood Urea Nitrogen 16 MG/DL Creatinine 0.68 MG/DL Random Glucose 48 MG/DL Calcium Level 8.9 MG/DL Sodium Level 139 MEQ/L Potassium Level 3.7 MEQ/L Chloride Level 107 MEQ/L Carbon Dioxide Level 24.5 MEQ/L Anion Gap 8 MEQ/L Estimat Glomerular Filtration Rate 92 ML/MIN B-Hydroxybutyrate 0.09 MMOL/L [facility] Medical Decision Making Medical Screen Exam Complete: Yes Emergency Medical Condition: Yes Interpretation(s) Review of EKG: Sinus bradycardia at a rate of 56, normal axis, normal intervals , no acute ischemia. Differential Diagnosis Anemia, vasovagal episode, dehydration, arrhythmia, other Narrative Course Medical decision making INITIAL: 51 year-old woman the near syncopal episode probably related to her iron deficiency anemia. We'll check H&H, discussed with hematology, reassess. FINAL: His blood sugar improved with food. Labs are unremarkable. I spoke with Dr. Darnell. The family doesn't think that preceded above associated with her hemoglobin. Suggested we could send hypoglycemia labs for further evaluation. I did look it up on up-to-date Center recommended labs. We don't appear to have labs to check for sulfonylurea or intentional ingestion of hypoglycemics. I asked her to follow-up on this with Dr. Mckeon, with referral to endocrinology if needed. Loss of her follow-up with her primary doctor. Diagnosis Primary Impression: Near syncope Additional Impression: Hypoglycemia Additional Instructions: Follow-up with Dr. Irby, and with your primary physician for further evaluation. Return to the emergency department for any recurrent episodes or any other new or worsening symptoms. Med/Other Pt SpecificInfo: No Change to Meds Disposition: 01 DISCHARGE HOME Condition: Stable Nicolas Burgess MD Jul 16, 2017 08:49
[2017-07-16 09:00] VITALS: BP 93/55; PULSE 48; RESP 12; O2SAT 100
[2017-07-16 09:24] LABS: AUTOMATED NEUTROPHIL # 3.2 TH/MM3 (1.8-7.7); BASOPHIL # 0.1 TH/MM3 (0-0.2); BASOPHIL % 1.4 % (0.0-2.0); EOSINOPHIL # 0.1 TH/MM3 (0-0.4); EOSINOPHIL % 2.2 % (0.0-4.0); HEMATOCRIT 32.1 % (35.0-46.0); HEMO FLAGS DIFF FINAL; LYMPH % 38.1 % (9.0-44.0); LYMPHOCYTE # 2.6 TH/MM3 (1.0-4.8); MEAN CELL VOLUME 71.7 FL (80.0-100.0); MEAN CORPUSCULAR HEMOGLOBIN 22.1 PG (27.0-34.0); MEAN CORPUSCULAR HGB CONC 30.8 % (32.0-36.0); NEUT % 46.3 % (16.0-70.0); PLATELET COUNT 383 TH/MM3 (150-450); RED BLOOD COUNT 4.48 MIL/MM3 (4.00-5.30); RED CELL DISTRIBUTION WIDTH 20.3 % (11.6-17.2); WHITE BLOOD COUNT 6.9 TH/MM3 (4.0-11.0)
[2017-07-16 09:48] LABS: BICARBONATE 24.5 MEQ/L (21.0-32.0); POTASSIUM 3.7 MEQ/L (3.5-5.1)
[2017-07-16 10:33] VITALS: BP 95/58; PULSE 61; RESP 18; O2SAT 100
[2017-07-16 11:00] VITALS: BP 98/55; PULSE 60; RESP 20; O2SAT 100
--- NOTE | 2017-07-16 15:29 | EKG ---
Date Performed: 07/16/2017 Time Performed: 08:02:43 PTAGE: 51 years EKG: SINUS BRADYCARDIA LOW QRS VOLTAGE IN PRECORDIAL LEADS BORDERLINE ECG NO PREVIOUS TRACING DOCTOR: Padma Harden Interpretating Date/Time 07/16/2017 15:27:58
== END 2017-07-16 13:11 | disposition home or self-care (01) ==
LOC: NEPC 06:52
DX: R55 Syncope and collapse (principal); E16.2 Hypoglycemia, unspecified; R51 Headache; R42 Dizziness and giddiness; N93.9 Abnormal uterine and vaginal bleeding, unspecified; R94.31 Abnormal electrocardiogram [ECG] [EKG]; E07.9 Disorder of thyroid, unspecified; Z98.84 Bariatric surgery status; Z86.2 Personal history of diseases of the blood and blood-forming organs and certain disorders involving the immune mechanism; Z87.42 Personal history of other diseases of the female genital tract; Z86.59 Personal history of other mental and behavioral disorders
CPT/HCPCS: 80048; 82010; 83525; 84681; 85025; 93005; 99284